=== PATIENT | male | born 1970 | race Caucasian/White ===

== ENCOUNTER → 2018-09-26 07:49 | Outpatient (CLI) | payer BC, SELFPAY ==
--- NOTE | 2018-09-26 12:25 | PM.TREADMILL ---
Cardiac Stress Test Report Referral & Results Date Patient Seen: 09/26/18 Time Patient Seen: 09:00 Requesting provider: Geraldo Fay Indication: Chest pain, palpitations Rest ECG: NSR Procedure Note: Today following both written and verbal informed consent, the patient was exercised according to a standard Fabricio protocol. The patient exercised for a total of 12 minutes 14 seconds achieving a maximum heart rate of 161. Patient's maximum systolic blood pressure was 190. This was an estimated 12.8 MET's. Occasional exercise PVCs. Patient asymptomatic throughout the test. Impression: Low probability for ischemia. Hughes treadmill score of 12 projects 97% survival over the next 5 years. Please note: Actual ECG tracings can be found in the PACS system.
== END ==
PROVIDERS: PCP Internal Medicine; Visit Provider Internal Medicine
DX: R07.9 Chest pain, unspecified (principal); R00.2 Palpitations
CPT/HCPCS: 93016; 93017; 93018

== ENCOUNTER → 2019-02-22 14:36 | Outpatient (CLI) | payer BC, SELFPAY ==
--- NOTE | 2019-02-22 | DI.US.S_ITS ---
PROCEDURE: US SCROTUM INDICATIONS: RIGHT SCROTAL LUMP TECHNIQUE: Real-time scanning was performed of the scrotum and testicles, with image documentation. Color and pulse Doppler interrogation was performed of both testicles. COMPARISON: None. FINDINGS: Right: Testicle is normal in size at 4.7 x 2.4 x 2.8 cm, and homogenous in echotexture. Epididymis is normal in overall size and morphology. No hydrocele or varicoceles. Overlying scrotal skin is normal in thickness. Left: Testicle is normal in size at 4.3 x 2.6 x 3.0 cm, and homogeneous in echotexture. Epididymis is normal in overall size and morphology. No hydrocele or varicoceles. Overlying scrotal skin is normal in thickness. Doppler: Color and pulse Doppler demonstrate normal and symmetric arterial flow in both testicles. IMPRESSION: Normal exam. Normal exam. Dictated by: Everardo CASTILLO Interpreted: Shravan Patel MD on 02/22/2019 at 15:47 Approved by: Shravan Patel M.D. on 02/22/2019 at 17:24
== END ==
PROVIDERS: PCP Student in an Organized Health Care Education/Training Program; Visit Provider Internal Medicine
DX: N50.9 Disorder of male genital organs, unspecified (principal); I86.1 Scrotal varices; N50.811 Right testicular pain
CPT/HCPCS: 76870

== ENCOUNTER → 2019-09-26 15:03 | Oncology outpatient (ONC) | payer BC, SELFPAY ==
[2019-09-26 14:16] VITALS: BP 127/82; PULSE 55; RESP 16; TEMP 36.2; O2SAT 98
--- NOTE | 2019-09-26 14:54 | ONC.CONS ---
History of Present Illness - Data of Consult Patient: new to practice Primary Care Provider: Jeff Degroot MD - Consult Narrative Narrative: Eric Devi is a 49 year old male with a family history of hemochromatosis in his sister, who comes today for hematology assessment for whether not he has hemochromatosis. His sister was diagnosed several years ago and has and has had multiple phlebotomies. Testing has shown that she has damage to her heart, liver and kidneys on MRI scanning. She was advised by her managing physicians to notify her family of this diagnosis of that they could undergo appropriate testing. Mr. Devi presents today for this purpose. From his perspective is generally feeling fairly good. He notes heart palpitations that have been diagnosed as PVCs. He has had a ZIO patch, treadmill, and echocardiogram for assessment of these findings. No therapy has been undertaken for this. He also notes that he has some joint pains although no changes of inflammatory arthritis. He denies other pain, bleeding, localized weakness, fever, chills, nausea, vomiting, cough or shortness of breath. All other systems are negative. Past medical history 1. Current medications include as needed Pepcid, vitamin-C, multiple vitamin, fiber Lax and as needed Claritin 2. History of PVCs 3. Gastroesophageal reflux 4. Previous surgeries include appendectomy, left knee arthroscopy and upper endoscopy 5. His mother had this had thyroid and ovarian cancer. His sister has hemochromatosis as outlined above 6. He is allergic to separate Septra penicillin 7. He is and alone in the office today. He is not a smoker or drinker. CC: Jack Scott MD Home Medications and Allergies Home Medications Medication Instructions Recorded Confirmed Type CA PANTOTHENATE/FOLIC ACID/VIT 1 tab PO DAILY #0 03/03/11 09/26/19 History (MULTIVITAMIN) famotidine [Pepcid] 20 mg PO QDAY #0 05/10/11 09/26/19 History loratadine [Claritin] 10 mg PO DAILY PRN 09/26/19 09/26/19 History Allergies Allergy/AdvReac Type Severity Reaction Status Date / Time From SEPTRA DS Allergy Mild itchy rash Uncoded 07/13/17 12:33 PENICILLIN Allergy Mild report as Uncoded 07/13/17 12:33 Medical History - Medical, Surgical, Family History Surgical History: Surgical History Status post appendectomy - Social History Smoking Status: Never smoker Review of Systems - Patient Self-Reported Symptoms SR Cardiovascular issues: Palpitations SR Musculoskeletal issues: Joint pain or swelling Exam Vital signs: Vital Signs Temp Pulse Resp BP Pulse Ox 09/26/19 14:16 97.2 F L 55 L 16 127/82 98 Intake and Output 09/25/19 09/26/19 09/26/19 23:59 07:59 15:59 Other: Weight 98.4 kg Patient Weight 09/26/19 23:59 Weight 98.4 kg Narrative: He was awake alert and oriented x3. There were no changes of joint inflammation in his hands. He was fully ambulatory and in no acute distress. Results - Imaging Additional studies: Procedures ESOPHAGOGASTRODUODENOSCOPY [EGD] W/CLOSED BIOPSY (07/22/09) Assessment and Plan (1) Family history of hemochromatosis Status: Acute Mr. Devi has a family history of hemochromatosis. We reviewed the inheritance of hemochromatosis which is autosomal recessive. With his sister being affected, this would mean that both of her parents are obligate carriers of the gene. We reviewed the fact that a quarter of their children would be perfectly normal, half their children would be heterozygotes, and a quarter of her children would be homozygous for the hemochromatosis gene. We discussed the fact that there are 2 major hemochromatosis genes. We reviewed the mechanism of hemochromatosis which is excessive absorption of iron due to a 5 mutation in the regulatory system that controls iron absorption. Over time, this can result in iron deposition in internal organs causing problems with heart, joints, liver, kidneys. Min are typically more affected than women. It typically requires many years of an extremely elevated iron level (ferritin over 1000) for iron deposition related damage to developed. We discussed the fact that hemochromatosis is effectively managed with phlebotomy. If phlebotomy is initiated prior to the onset of significant organ damage, it can prevent organ damage and would typically be expected to result in a normal life expectancy. Accordingly, testing family members of affected individual would be standard of care. We will get a ferritin and iron saturation calculation today. Iron saturation is typically a markedly elevated even in individuals who do not have actual iron overload. The ferritin levels the best reflection of actual iron stores and would be the end point for phlebotomy if it were required. We will check both of these test today along with a blood count metabolic panel to screen for internal organ function. If these tests are normal, no further hematology evaluation would be indicated. If these tests are abnormal, we will plan to regroup with Mr. Devi and formulate a plan for follow-up. Mr. Devi had multiple questions that were answered in detail but I personally spent 31 minutes in today's [id number] visit with greater than 50% of the time spent counseling regarding the issues outlined above.
[2019-09-26 15:17] LABS: Add Manual Diff / Slide Review NO; Basophils Absolute Auto 0 /uL (0-100); Basophils Percent Auto 0.5 % (0-2); Eosinophils Absolute Auto 100 /uL (0-450); Eosinophils Percent Auto 0.8 % (2-4); Hematocrit 44.8 % (41-53); Hemoglobin 15.3 g/dL (13.5-17.5); Lymphocytes Absolute Auto 2200 /uL (1100-4500); Mean Corpuscular HGB Conc 34.1 % (30-36); Mean Corpuscular Hemoglobin 29.5 PG (26-34); Mean Corpuscular Volume 86.6 fL (80-100); Monocytes Absolute Auto 700 /uL (0-900); Monocytes Percent Auto 8.4 % (3-14); Neutrophils Absolute Auto 5200 /uL (1500-7000); Neutrophils Percent Auto 63.3 % (50-75); Platelet Count 260 X10^3/uL (150-400); Red Blood Cell Count 5.17 X10^6/uL (4.5-5.9); Red Cell Distribution Width 13.8 % (11.6-14.8); White Blood Cell Count 8.3 X10^3/uL (4.5-11.0)
[2019-09-26 15:36] LABS: Alanine Aminotransferase 29 IU/L (<50); Albumin 4.8 g/dL (3.5-5.0); Albumin Globulin Ratio 1.6 (1.0-2.8); Alkaline Phosphatase 83 U/L (38-126); Aspartate Aminotransferase 27 IU/L (17-59); BUN Creatinine Ratio 17.6 (6-22); Bilirubin Total 0.5 mg/dL (0.2-1.3); Blood Urea Nitrogen 16 mg/dL (9-20); Calcium 10.2 mg/dL (8.4-10.2); Carbon Dioxide 28 mmol/L (22-32); Chloride 105 mmol/L (98-107); Estimated Glomerular Filt Rate > 60.0 mL/min (>60); Glucose 96 mg/dL (70-100); HEMOLYSIS < 15 (0-50); Potassium 5.2 mmol/L (3.4-5.1); Sodium 141 mmol/L (137-145); Total Protein 7.8 g/dL (6.3-8.2)
[2019-09-26 15:43] LABS: HEMOLYSIS 17 (0-50); Iron 63 ug/dL (49-181)
[2019-09-26 15:54] LABS: Percent Iron Saturation 20 % (20-50); Total Iron Binding Capacity 319 ug/dL (261-462); Transferrin 240 mg/dL (206-381)
[2019-09-26 16:11] LABS: Ferritin 141 ng/mL (18-464)
== END ==
PROVIDERS: PCP Student in an Organized Health Care Education/Training Program; Referring Provider Internal Medicine; Visit Provider Internal Medicine
DX: Z13.228 Encounter for screening for other metabolic disorders (principal); Z83.49 Family history of other endocrine, nutritional and metabolic diseases; I49.3 Ventricular premature depolarization; K21.9 Gastro-esophageal reflux disease without esophagitis
CPT/HCPCS: 36415; 80053; 82728; 83540; 83550; 85025; 99203; 99213

== ENCOUNTER 2020-07-15 11:32 | Emergency (ER) | payer BC, SELFPAY ==
[2020-07-15 11:35] VITALS: BP 189/95; PULSE 60; RESP 14; TEMP 36.6; O2SAT 99; BMI 27.5
--- NOTE | 2020-07-15 11:35 | DI.RAD.S_ITS ---
PROCEDURE: XR CHEST 1V INDICATIONS: chest pain TECHNIQUE: One view of the chest was acquired. COMPARISON: None. FINDINGS: Surgical changes and devices: None. Lungs and pleura: Lungs are clear. No pleural effusions or pneumothorax. Mediastinum: Mediastinal contours appear normal. Heart size is normal. Bones and chest wall: No suspicious bony lesions. Overlying soft tissues appear unremarkable. IMPRESSION: No acute cardiopulmonary disease process. Dictated by: Aurelia Villagran MD, PhD on 07/15/2020 at 11:59 Approved by: Aurelia Villagran MD, PhD on 07/15/2020 at 12:05
--- NOTE | 2020-07-15 11:36 | ED.CHESTPAIN ---
HPI - Chest Pain General Chief Complaint: Chest Pain Stated Complaint: chest pain Time Seen by Provider: 07/15/20 11:33 Source: patient Mode of arrival: Ambulatory Limitations: no limitations History of Present Illness HPI narrative: 49-year-old male nonsmoker without significant medical history presents with a chief complaint of left-sided chest pain off and on since Tuesday. He does not know for sure what he was doing when it started and states that it is at most a 2 or 3 and sometimes sharp and sometimes squeezing. He denies any radiation of his pain. He states it is made worse with deep breath and sometimes leaning forward. He states that he works out regularly and denies any exertional type component. He is not dizzy nor weak or lightheaded. He denies any shortness of breath, cough, fever or chills. He denies nausea, vomiting, unexplained diaphoresis. He denies recent travel, injury, history of cancer or prior blood clot. MD complaint: chest pain Onset (ago): day(s) Duration: intermittent Onset: during rest Pain location: left chest Severity: mild Severity scale (1-10): 3 Quality: aching and sharp Pain radiation: none Treatments prior to arrival chest pain: aspirin Related Data Home Medications Medication Instructions Recorded Confirmed CA PANTOTHENATE/FOLIC ACID/VIT 1 tab PO DAILY #0 03/03/11 03/21/20 (MULTIVITAMIN) famotidine [Pepcid] 20 mg PO QDAY #0 05/10/11 03/21/20 loratadine [Claritin] 10 mg PO DAILY PRN 09/26/19 03/21/20 Previous Rx's Medication Instructions Recorded ketorolac 10 mg PO Q6H PRN #14 tab 07/15/20 Allergies Allergy/AdvReac Type Severity Reaction Status Date / Time Penicillins Allergy Unknown Verified 07/15/20 11:43 sulfamethoxazole Allergy Unknown Verified 07/15/20 11:43 [From ] trimethoprim [From ] Allergy Unknown Verified 07/15/20 11:43 Review of Systems Constitutional Constitutional: Denies chills, Denies fatigue, Denies fever(s), Denies frequent falls, Denies lethargy and Denies weakness Eyes Eyes: Denies change in vision, Denies eye discharge, Denies irritation and Denies loss of vision ENT Ears, Nose, Mouth, and Throat: Denies change in voice, Denies dizziness, Denies neck pain, Denies sore throat and Denies throat swelling Cardiovascular Cardiovascular: Reports chest pain, Denies irregular heart rhythm, Denies lightheadedness, Denies palpitations, Denies dyspnea, Denies dyspnea on exertion and Denies orthopnea Respiratory Respiratory: Denies cough, Denies dyspnea, Denies dyspnea on exertion and Denies wheezing Gastrointestinal Gastrointestinal: Denies abdominal pain, Denies change in bowel habits, Denies diarrhea, Denies nausea and Denies vomiting Musculoskeletal Musculoskeletal: Denies neck pain and Denies numbness Integumentary/Breasts Skin/Breast: Denies pruritus, Denies erythema, Denies rash and Denies wounds Neurologic Neurologic: Denies behavioral changes, Denies confusion, Denies dizziness, Denies frequent falls, Denies loss of vision, Denies numbness and Denies weakness Psychiatric Psychiatric: Denies anxiety, Denies behavioral changes, Denies confusion, Denies depression, Denies homicidal ideation and Denies suicidal ideation Endocrine Endocrine: Denies fatigue, Denies flushing and Denies palpitations Hematologic/Lymphatic Hematologic/Lymphatic: Denies easy bruising Allergic/Immunologic Allergic/Immunologic: Denies urticaria, Denies throat swelling and Denies wheezing Patient History Medical History Family history of hemochromatosis Hyperlipidemia Premature ventricular contractions (PVCs) (VPCs) Surgical History Status post appendectomy Family History Unknown Hemochromatosis Social History Smoking Status: Never smoker Smoking Status: Never smoker Exam Narrative Exam Narrative: GENERAL: [49] year old patient appears stated age. Well-nourished, well-developed patient, in mild distress. HEAD: Atraumatic. Normocephalic. EYES: Pupils equal round and reactive. Extraocular motions intact. No scleral icterus. No injection or drainage. ENT: Nose without bleeding, purulent drainage. Throat without erythema, tonsillar hypertrophy or exudate. Airway patent. NECK: Trachea midline. Non tender CARDIOVASCULAR: Regular rate and rhythm without murmurs, gallops, or rubs. No reproducible pain on palpation, however deep breath seems to worsen his discomfort RESPIRATORY: Clear to auscultation. Breath sounds equal bilaterally. No wheezes, rales, or rhonchi. GASTROINTESTINAL: Abdomen soft, non-tender, nondistended. EXTREMITIES: No edema or joint tenderness. BACK: Nontender without deformity or crepitance. No flank tenderness. NEURO: AOx3. SKIN: No rash or erythema of visible areas Initial Vital Signs Initial Vital Signs: Vital Signs Temperature 97.8 F 07/15/20 11:35 Pulse Rate 60 07/15/20 11:35 Respiratory Rate 14 07/15/20 11:35 Blood Pressure 189/95 H 07/15/20 11:35 Pulse Oximetry 99 07/15/20 11:35 Course Orders Ordered: ED Orders 07/15/20 11:35 XR chest 1V Stat EKG-12 Lead Stat 07/15/20 12:00 C-Reactive Protein Quant Stat Complete Blood Count AUTO DIFF Stat Comprehensive Metabolic Panel Stat D Dimer Stat Erythrocyte Sedimentation Rate Stat Lipase Stat Partial Thromboplastin Time Stat Prothrombin Time INR Stat Troponin & CK Cardiac Panel Stat Vital Signs Vital signs: Vital Signs - 8 hr 07/15/20 12:00 07/15/20 12:25 07/15/20 12:30 Pulse Rate 51 L 51 L 52 L Respiratory Rate 15 15 13 Blood Pressure 134/66 129/74 Pulse Oximetry 100 100 99 07/15/20 13:00 Pulse Rate 52 L Respiratory Rate 16 Blood Pressure 127/85 Pulse Oximetry 99 MDM - Chest Pain Lab Data Result diagrams: 07/15/20 12:00 07/15/20 12:00 Labs: Lab Results 07/15/20 07/15/20 07/15/20 Range/Units 12:00 12:00 12:00 WBC 7.3 (4.5-11.0) X10^3/uL RBC 5.23 (4.5-5.9) X10^6/uL Hgb 15.3 (13.5-17.5) g/dL Hct 44.8 (41-53) % MCV 85.6 (80-100) fL MCH 29.3 (26-34) PG MCHC 34.2 (30-36) % RDW 13.6 (11.6-14.8) % Plt Count 252 (150-400) X10^3/uL Neut % (Auto) 56.2 (50-75) % Lymph % (Auto) 31.1 (25-40) % Craven % (Auto) 10.1 (3-14) % Eos % (Auto) 2.0 (2-4) % Baso % (Auto) 0.6 (0-2) % Neut # (Auto) 4100 (2934-5257) /uL Lymph # (Auto) 2300 (4975-9923) /uL Craven # (Auto) 700 (0-900) /uL Eos # (Auto) 100 (0-450) /uL Baso # (Auto) 0 (0-100) /uL ESR (0-15) MM/HR PT 11.7 (10.1-12.7) SECONDS INR 1.0 (0.9-1.3) APTT 38 H (26.4-36.2) SECONDS D-Dimer (<230) ng/mL Sodium 140 (137-145) mmol/L Potassium 4.1 (3.4-5.1) mmol/L Chloride 103 (98-107) mmol/L Carbon Dioxide 30 (22-32) mmol/L BUN 16 (9-20) mg/dL Creatinine 0.87 (0.66-1.25) mg/dL Estimated GFR > 60.0 (>60) mL/min BUN/Creatinine Ratio 18.4 (6-22) Glucose 98 (70-100) mg/dL Calcium 9.9 (8.4-10.2) mg/dL Total Bilirubin 0.6 (0.2-1.3) mg/dL AST 31 (17-59) IU/L ALT 45 (<50) IU/L Alkaline Phosphatase 88 (38-126) U/L Total Creatine Kinase 98 (55-170) U/L CK-MB (CK-2) TNP CK-MB (CK-2) Rel Index TNP Troponin I < 0.012 (0.01-0.034) ng/mL C-Reactive Protein (<1.0) mg/dL Total Protein 7.7 (6.3-8.2) g/dL Albumin 4.6 (3.5-5.0) g/dL Globulin 3.1 (1.7-4.1) g/dL Albumin/Globulin Ratio 1.5 (1.0-2.8) Lipase 54 (23-300) U/L 07/15/20 07/15/20 07/15/20 Range/Units 12:00 12:00 12:00 WBC (4.5-11.0) X10^3/uL RBC (4.5-5.9) X10^6/uL Hgb (13.5-17.5) g/dL Hct (41-53) % MCV (80-100) fL MCH (26-34) PG MCHC (30-36) % RDW (11.6-14.8) % Plt Count (150-400) X10^3/uL Neut % (Auto) (50-75) % Lymph % (Auto) (25-40) % Craven % (Auto) (3-14) % Eos % (Auto) (2-4) % Baso % (Auto) (0-2) % Neut # (Auto) (2514-5411) /uL Lymph # (Auto) (6512-3156) /uL Craven # (Auto) (0-900) /uL Eos # (Auto) (0-450) /uL Baso # (Auto) (0-100) /uL ESR 2 (0-15) MM/HR PT (10.1-12.7) SECONDS INR (0.9-1.3) APTT (26.4-36.2) SECONDS D-Dimer < 200 (<230) ng/mL Sodium (137-145) mmol/L Potassium (3.4-5.1) mmol/L Chloride (98-107) mmol/L Carbon Dioxide (22-32) mmol/L BUN (9-20) mg/dL Creatinine (0.66-1.25) mg/dL Estimated GFR (>60) mL/min BUN/Creatinine Ratio (6-22) Glucose (70-100) mg/dL Calcium (8.4-10.2) mg/dL Total Bilirubin (0.2-1.3) mg/dL AST (17-59) IU/L ALT (<50) IU/L Alkaline Phosphatase (38-126) U/L Total Creatine Kinase (55-170) U/L CK-MB (CK-2) CK-MB (CK-2) Rel Index Troponin I (0.01-0.034) ng/mL C-Reactive Protein 0.5 (<1.0) mg/dL Total Protein (6.3-8.2) g/dL Albumin (3.5-5.0) g/dL Globulin (1.7-4.1) g/dL Albumin/Globulin Ratio (1.0-2.8) Lipase (23-300) U/L ECG Data Interpretation: EKG is normal sinus rhythm rate [50 ] and free of any signs of ischemia or ectopy. No ST segmental elevation or depression. No T wave inversions MDM Narrative Medical decision making narrative: Multiple etiologies for patient's symptoms considered including: [Cardiac ischemia thought unlikely given lack of exertional symptoms, radiation of discomfort, findings which troponin or EKG. Pulmonary embolism considered but thought unlikely given negative D-dimer. Hypertensive urgency considered given occasional elevated blood pressure but no correlation obtained here. Reflux or other GI symptoms considered given his history but unclear. Pericarditis considered given reproducible sharp pain with change of position and deep breathing. No inflammatory markers however.] Patient's symptoms improved over duration of stay with above-stated therapies. Findings and discharge diagnosis discussed with patient/family followed by verbalization of understanding Return precautions discussed with patient/family whom verbalize understanding. Discharge Plan Departure Patient Disposition: Home Clinical Impression: Atypical chest pain Instructions: Pericarditis -- Adult, DI for Atypical Chest Pain Activity Restrictions/Additional Instructions: *You have been diagnosed with [atypical chest pain, labs, exam, EKGs and imaging are very reassuring.] *What to do: *Take medications as directed: *Follow up with your primary care provider in 2-3 days, call for an appointment. Let them know you were seen in the Emergency Department and that we ask that you be seen in follow up *Return to ER if you should have any new, worsening or concerning symptoms Prescriptions: New ketorolac 10 mg tablet 10 mg PO Q6H PRN (Reason: pain) Qty: 14 RF: 0 No Action CA PANTOTHENATE/FOLIC ACID/VIT (MULTIVITAMIN) 1 tab PO DAILY Qty: 0 RF: 0 famotidine [Pepcid] 20 MG tablet 20 mg PO QDAY Qty: 0 RF: 0 loratadine [Claritin] 10 mg Tablet 10 mg PO DAILY PRN (Reason: Allergic Symptoms) RF: 0 Referrals: Cesario Hutchins MD [Primary Care Provider] -
[2020-07-15 11:42] VITALS: PULSE 53; RESP 20; O2SAT 100
[2020-07-15 12:00] VITALS: PULSE 51; RESP 15; O2SAT 100
[2020-07-15 12:09] LABS: Add Manual Diff / Slide Review NO; Basophils Absolute Auto 0 /uL (0-100); Basophils Percent Auto 0.6 % (0-2); Eosinophils Absolute Auto 100 /uL (0-450); Hematocrit 44.8 % (41-53); Hemoglobin 15.3 g/dL (13.5-17.5); Lymphocytes Absolute Auto 2300 /uL (1100-4500); Lymphocytes Percent Auto 31.1 % (25-40); Mean Corpuscular HGB Conc 34.2 % (30-36); Mean Corpuscular Hemoglobin 29.3 PG (26-34); Mean Corpuscular Volume 85.6 fL (80-100); Monocytes Absolute Auto 700 /uL (0-900); Monocytes Percent Auto 10.1 % (3-14); Neutrophils Absolute Auto 4100 /uL (1500-7000); Neutrophils Percent Auto 56.2 % (50-75); Platelet Count 252 X10^3/uL (150-400); Red Blood Cell Count 5.23 X10^6/uL (4.5-5.9); Red Cell Distribution Width 13.6 % (11.6-14.8); White Blood Cell Count 7.3 X10^3/uL (4.5-11.0)
[2020-07-15 12:25] VITALS: BP 134/66; PULSE 51; RESP 15; O2SAT 100
[2020-07-15 12:25] LABS: Prothrombin Time 11.7 SECONDS (10.1-12.7)
[2020-07-15 12:27] LABS: PTT Partial Thromboplastin Tim 38 SECONDS (26.4-36.2)
[2020-07-15 12:28] LABS: Alanine Aminotransferase 45 IU/L (<50); Albumin 4.6 g/dL (3.5-5.0); Albumin Globulin Ratio 1.5 (1.0-2.8); Alkaline Phosphatase 88 U/L (38-126); Aspartate Aminotransferase 31 IU/L (17-59); BUN Creatinine Ratio 18.4 (6-22); Bilirubin Total 0.6 mg/dL (0.2-1.3); Blood Urea Nitrogen 16 mg/dL (9-20); Calcium 9.9 mg/dL (8.4-10.2); Carbon Dioxide 30 mmol/L (22-32); Chloride 103 mmol/L (98-107); Creatine Kinase 98 U/L (55-170); Estimated Glomerular Filt Rate > 60.0 mL/min (>60); Globulin 3.1 g/dL (1.7-4.1); Glucose 98 mg/dL (70-100); HEMOLYSIS < 15 (0-50); Lipase 54 U/L (23-300); Potassium 4.1 mmol/L (3.4-5.1); Sodium 140 mmol/L (137-145); Total Protein 7.7 g/dL (6.3-8.2)
[2020-07-15 12:30] VITALS: BP 129/74; PULSE 52; RESP 13; O2SAT 99
[2020-07-15 12:38] LABS: D Dimer < 200 ng/mL (<230); Troponin I < 0.012 ng/mL (0.01-0.034)
[2020-07-15 12:39] LABS: C-Reactive Protein Quant 0.5 mg/dL (<1.0)
[2020-07-15 12:46] LABS: Erythrocyte Sedimentation Rate 2 MM/HR (0-15)
[2020-07-15 13:00] VITALS: BP 127/85; PULSE 52; RESP 16; O2SAT 99
== END 2020-07-15 13:22 | disposition home or self-care (01) ==
PROVIDERS: Emergency Provider Emergency Medicine; PCP Family Medicine
DX: R07.89 Other chest pain (principal)
CPT/HCPCS: 36415; 71045; 80053; 82550; 83690; 84484; 85025; 85379; 85610; 85651; 85730; 86140; 93005; 93010; 99283; 99284

== ENCOUNTER → 2020-07-18 08:55 | Outpatient (CLI) | payer BC, SELFPAY ==
[2020-07-18 09:54] LABS: Alanine Aminotransferase 37 IU/L (<50); Albumin 4.6 g/dL (3.5-5.0); Albumin Globulin Ratio 1.6 (1.0-2.8); Alkaline Phosphatase 85 U/L (38-126); Aspartate Aminotransferase 29 IU/L (17-59); BUN Creatinine Ratio 16.3 (6-22); Bilirubin Total 0.6 mg/dL (0.2-1.3); Blood Urea Nitrogen 14 mg/dL (9-20); Calcium 9.7 mg/dL (8.4-10.2); Carbon Dioxide 27 mmol/L (22-32); Chloride 104 mmol/L (98-107); Cholesterol 172 mg/dL (140-199); Estimated Glomerular Filt Rate > 60.0 mL/min (>60); Globulin 2.8 g/dL (1.7-4.1); Glucose 97 mg/dL (70-100); HDL Cholesterol 39 mg/dL (40-60); HEMOLYSIS < 15 (0-50); LDL Cholesterol Calculated 117 mg/dL (<100); Potassium 4.7 mmol/L (3.4-5.1); Sodium 139 mmol/L (137-145); Total Protein 7.4 g/dL (6.3-8.2); Triglycerides 78 mg/dL (35-150)
== END ==
PROVIDERS: PCP Family Medicine; Referring Provider Family Medicine; Visit Provider Family Medicine
DX: E78.5 Hyperlipidemia, unspecified (principal); R03.0 Elevated blood-pressure reading, without diagnosis of hypertension
CPT/HCPCS: 36415; 80053; 80061

== ENCOUNTER → 2020-07-31 11:04 | Outpatient (CLI) | payer BC, SELFPAY ==
[2020-07-31 12:01] LABS: Add Manual Diff / Slide Review NO; Basophils Absolute Auto 100 /uL (0-100); Basophils Percent Auto 0.7 % (0-2); Eosinophils Absolute Auto 200 /uL (0-450); Eosinophils Percent Auto 2.1 % (2-4); Hematocrit 44.8 % (41-53); Hemoglobin 15.3 g/dL (13.5-17.5); Lymphocytes Absolute Auto 2600 /uL (1100-4500); Lymphocytes Percent Auto 31.4 % (25-40); Mean Corpuscular HGB Conc 34.1 % (30-36); Mean Corpuscular Hemoglobin 29.1 PG (26-34); Mean Corpuscular Volume 85.5 fL (80-100); Monocytes Absolute Auto 900 /uL (0-900); Monocytes Percent Auto 10.6 % (3-14); Neutrophils Absolute Auto 4600 /uL (1500-7000); Neutrophils Percent Auto 55.2 % (50-75); Platelet Count 266 X10^3/uL (150-400); Red Blood Cell Count 5.23 X10^6/uL (4.5-5.9); Red Cell Distribution Width 13.6 % (11.6-14.8); White Blood Cell Count 8.3 X10^3/uL (4.5-11.0)
[2020-07-31 12:16] LABS: Alanine Aminotransferase 38 IU/L (<50); Albumin 4.7 g/dL (3.5-5.0); Albumin Globulin Ratio 1.7 (1.0-2.8); Alkaline Phosphatase 83 U/L (38-126); Aspartate Aminotransferase 27 IU/L (17-59); Bilirubin Total 0.5 mg/dL (0.2-1.3); Blood Urea Nitrogen 15 mg/dL (9-20); Calcium 10.2 mg/dL (8.4-10.2); Carbon Dioxide 27 mmol/L (22-32); Chloride 102 mmol/L (98-107); Estimated Glomerular Filt Rate > 60.0 mL/min (>60); Globulin 2.7 g/dL (1.7-4.1); Glucose 88 mg/dL (70-100); HEMOLYSIS < 15 (0-50); Lipase 70 U/L (23-300); Potassium 4.6 mmol/L (3.4-5.1); Sodium 138 mmol/L (137-145); Total Protein 7.4 g/dL (6.3-8.2)
== END ==
PROVIDERS: PCP Family Medicine; Referring Provider Registered Nurse; Visit Provider Registered Nurse
DX: R19.00 Intra-abdominal and pelvic swelling, mass and lump, unspecified site (principal)
CPT/HCPCS: 36415; 80053; 83690; 85025

== ENCOUNTER → 2020-08-08 09:17 | Outpatient (CLI) | payer BC, SELFPAY ==
--- NOTE | 2020-08-08 09:17 | DI.US.S_ITS ---
PROCEDURE: US ABDOMEN COMPLETE INDICATIONS: ABDOMINAL DISENTION 1 MONTH POST 2ND PFIZER VACCINE TECHNIQUE: Real-time scanning was performed of the abdominal and retroperitoneal organs, with image documentation. COMPARISON: None. FINDINGS: Liver: 17.2 cm in length. Normal appearance Gallbladder: Negative Biliary ducts: Intrahepatic bile ducts are non-dilated. Extrahepatic bile duct caliber measures 5 mm. Normal is 6-7 mm or less in diameter, or 10 mm or less post-cholecystectomy. Pancreas: Visualized portions of the pancreas are sonographically normal. The pancreatic tail is not well seen secondary to shadowing bowel gas Spleen: Spleen is normal in size and homogeneous in echotexture. Kidneys: Kidneys are normal in size and echotexture. Right kidney measures 10.2 cm long; left kidney measures 12.0 cm long. No hydronephrosis or nephrolithiasis. No solid masses. Aorta: Proximal aorta not well seen otherwise normal caliber. Iliacs: Proximal common iliac arteries are normal in caliber at less than 2.5 cm. IVC: Intrahepatic inferior vena cava is patent. Miscellaneous: No free abdominal fluid. Anterior abdominal wall grossly unremarkable IMPRESSION: Negative examination as above. Dictated by: Bimal Quiles M.D. on 08/08/2020 at 10:39 Approved by: Bimal Quiles M.D. on 08/08/2020 at 10:40
== END ==
PROVIDERS: PCP Family Medicine; Referring Provider Registered Nurse; Visit Provider Registered Nurse
DX: R19.00 Intra-abdominal and pelvic swelling, mass and lump, unspecified site (principal)
CPT/HCPCS: 76700

== ENCOUNTER → 2021-07-02 07:30 | Outpatient (CLI) | payer BC, SELFPAY ==
[2021-07-02 07:58] LABS: Add Manual Diff / Slide Review NO; Basophils Absolute Auto 100 /uL (0-100); Basophils Percent Auto 0.7 % (0-2); Eosinophils Absolute Auto 200 /uL (0-450); Eosinophils Percent Auto 2.2 % (2-4); Hematocrit 44.2 % (41-53); Hemoglobin 15.2 g/dL (13.5-17.5); Lymphocytes Absolute Auto 2700 /uL (1100-4500); Lymphocytes Percent Auto 35.4 % (25-40); Mean Corpuscular HGB Conc 34.4 % (30-36); Mean Corpuscular Hemoglobin 29.6 PG (26-34); Monocytes Absolute Auto 700 /uL (0-900); Monocytes Percent Auto 9.3 % (3-14); Neutrophils Absolute Auto 4000 /uL (1500-7000); Neutrophils Percent Auto 52.4 % (50-75); Platelet Count 245 X10^3/uL (150-400); Red Blood Cell Count 5.14 X10^6/uL (4.5-5.9); Red Cell Distribution Width 13.6 % (11.6-14.8); White Blood Cell Count 7.7 X10^3/uL (4.5-11.0)
[2021-07-02 08:26] LABS: Alanine Aminotransferase 36 IU/L (<50); Albumin 4.6 g/dL (3.5-5.0); Albumin Globulin Ratio 1.7 (1.0-2.8); Alkaline Phosphatase 68 U/L (38-126); Aspartate Aminotransferase 35 IU/L (17-59); BUN Creatinine Ratio 17.8 (6-22); Bilirubin Total 0.8 mg/dL (0.2-1.3); Blood Urea Nitrogen 16 mg/dL (9-20); Calcium 9.1 mg/dL (8.4-10.2); Carbon Dioxide 27 mmol/L (22-32); Chloride 105 mmol/L (98-107); Cholesterol 182 mg/dL (140-199); Estimated Glomerular Filt Rate > 60.0 mL/min (>60); Globulin 2.7 g/dL (1.7-4.1); Glucose 95 mg/dL (70-100); HDL Cholesterol 43 mg/dL (40-60); LDL Cholesterol Calculated 114 mg/dL (<100); Potassium 4.7 mmol/L (3.4-5.1); Sodium 137 mmol/L (137-145); Total Protein 7.3 g/dL (6.3-8.2); Triglycerides 127 mg/dL (35-150)
[2021-07-02 08:27] LABS: Creatinine Urine Random 224.5 mg/dL
[2021-07-02 08:28] LABS: HEMOLYSIS 71 (0-50)
[2021-07-02 08:29] LABS: Microalbumi Creatinin Ratio Ur 5.7 ug/mg CR (<30); Microalbumin Urine Random 1.3 mg/dL (0-1.6)
[2021-07-02 08:54] LABS: TSH w/ Reflex to FT4 2.27 uIU/mL (0.47-4.68)
== END ==
PROVIDERS: PCP Family Medicine; Referring Provider Family Medicine; Visit Provider Family Medicine
DX: E78.5 Hyperlipidemia, unspecified (principal); F43.9 Reaction to severe stress, unspecified; I10 Essential (primary) hypertension
CPT/HCPCS: 36415; 80053; 80061; 82043; 82570; 84443; 85025

== ENCOUNTER → 2022-08-19 08:00 | Outpatient (CLI) | payer BC, SELFPAY ==
[2022-08-19 08:29] LABS: Add Manual Diff / Slide Review NO; Basophils Absolute Auto 100 /uL (0-100); Basophils Percent Auto 0.9 % (0-2); Eosinophils Absolute Auto 100 /uL (0-450); Eosinophils Percent Auto 2.2 % (2-4); Hematocrit 41.6 % (41-53); Hemoglobin 14.6 g/dL (13.5-17.5); Lymphocytes Absolute Auto 1800 /uL (1100-4500); Lymphocytes Percent Auto 30.6 % (25-40); Mean Corpuscular Hemoglobin 29.9 PG (26-34); Mean Corpuscular Volume 85.2 fL (80-100); Monocytes Absolute Auto 500 /uL (0-900); Monocytes Percent Auto 8.6 % (3-14); Neutrophils Absolute Auto 3400 /uL (1500-7000); Neutrophils Percent Auto 57.7 % (50-75); Platelet Count 237 X10^3/uL (150-400); Red Blood Cell Count 4.89 X10^6/uL (4.5-5.9); Red Cell Distribution Width 14.3 % (11.6-14.8); White Blood Cell Count 5.9 X10^3/uL (4.5-11.0)
[2022-08-19 09:24] LABS: Alanine Aminotransferase 29 IU/L (<50); Albumin 4.1 g/dL (3.5-5.0); Albumin Globulin Ratio 1.6 (1.0-2.8); Alkaline Phosphatase 79 U/L (38-126); Aspartate Aminotransferase 25 IU/L (17-59); BUN Creatinine Ratio 13.1 (6-22); Bilirubin Total 0.8 mg/dL (0.2-1.3); Blood Urea Nitrogen 11 mg/dL (9-20); Calcium 8.9 mg/dL (8.4-10.2); Carbon Dioxide 25 mmol/L (22-32); Chloride 105 mmol/L (98-107); Cholesterol 153 mg/dL (140-199); Estimated Glomerular Filt Rate > 60 mL/min (>60); Globulin 2.5 g/dL (1.7-4.1); Glucose 91 mg/dL (70-100); HDL Cholesterol 42 mg/dL (40-60); HEMOLYSIS < 15 (0-50); LDL Cholesterol Calculated 98 mg/dL (<100); Potassium 4.4 mmol/L (3.4-5.1); Sodium 138 mmol/L (137-145); Total Protein 6.6 g/dL (6.3-8.2); Triglycerides 65 mg/dL (35-150)
[2022-08-19 10:11] LABS: Creatinine Urine Random 237.9 mg/dL
[2022-08-19 10:15] LABS: Microalbumi Creatinin Ratio Ur 12.6 ug/mg CR (<30)
[2022-08-21 22:27] LABS: Lipoprotein (a) 15.2 nmol/L (<75.0)
== END ==
PROVIDERS: PCP Family Medicine; Referring Provider Family Medicine; Visit Provider Family Medicine
DX: E78.5 Hyperlipidemia, unspecified (principal); I10 Essential (primary) hypertension; Z86.79 Personal history of other diseases of the circulatory system
CPT/HCPCS: 36415; 80053; 80061; 82043; 82570; 83695; 84443; 85025

== ENCOUNTER → 2022-11-03 17:04 | Outpatient (CLI) | payer BC, SELFPAY ==
[2022-11-03 18:05] LABS: Appearance Urine UA CLEAR; Bilirubin Urine UA NEGATIVE (NEGATIVE); Color Urine UA YELLOW; Glucose Urine UA NEGATIVE (Negative); Ketones Urine UA NEGATIVE (NEGATIVE); Leukocyte Esterase Urine UA NEGATIVE (NEGATIVE); Nitrite Urine UA NEGATIVE (Negative); Occult Blood Urine UA NEGATIVE (Negative); Protein Urine UA NEGATIVE (Negative); Specific Gravity Urine UA <=1.005 (1.000-1.035); Urobilinogen Urine UA 0.2 E.U./dL (0.2)
[2022-11-03 18:15] LABS: Bacteria Urine None Seen; Culture Indicated Urine Cult Not Indicated; RBC Urine None Seen (0-5/HPF); Squamous Epithelial Cell Urine None Seen (0-5/HPF); WBC Urine None Seen (0-5/HPF)
== END ==
PROVIDERS: PCP Family Medicine; Referring Provider Family Medicine; Visit Provider Family Medicine
DX: R35.0 Frequency of micturition (principal); R10.9 Unspecified abdominal pain
CPT/HCPCS: 81001

== ENCOUNTER → 2023-10-26 07:33 | Outpatient (CLI) | payer BC, SELFPAY ==
[2023-10-26 08:30] LABS: Add Manual Diff / Slide Review NO; Basophils Absolute Auto 0 /uL (0-100); Basophils Percent Auto 0.7 % (0-2); Eosinophils Absolute Auto 100 /uL (0-450); Hematocrit 44.4 % (41-53); Hemoglobin 15.1 g/dL (13.5-17.5); Lymphocytes Absolute Auto 2000 /uL (1100-4500); Lymphocytes Percent Auto 33.1 % (25-40); Mean Corpuscular Hemoglobin 29.4 PG (26-34); Mean Corpuscular Volume 86.4 fL (80-100); Monocytes Absolute Auto 600 /uL (0-900); Monocytes Percent Auto 9.7 % (3-14); Neutrophils Absolute Auto 3200 /uL (1500-7000); Neutrophils Percent Auto 54.5 % (50-75); Platelet Count 261 X10^3/uL (150-400); Red Blood Cell Count 5.14 X10^6/uL (4.5-5.9); Red Cell Distribution Width 13.5 % (11.6-14.8); White Blood Cell Count 5.9 X10^3/uL (4.5-11.0)
[2023-10-26 08:38] LABS: Hemoglobin A1C% w Est Avg Glu 5.4 % (4.0-6.0)
[2023-10-26 09:16] LABS: Appearance Urine UA CLEAR; Bilirubin Urine UA NEGATIVE (NEGATIVE); Color Urine UA YELLOW; Glucose Urine UA NEGATIVE (Negative); Ketones Urine UA NEGATIVE (NEGATIVE); Leukocyte Esterase Urine UA NEGATIVE (NEGATIVE); Nitrite Urine UA NEGATIVE (Negative); Occult Blood Urine UA NEGATIVE (Negative); Protein Urine UA NEGATIVE (Negative); Specific Gravity Urine UA <=1.005 (1.000-1.035); Urobilinogen Urine UA 0.2 E.U./dL (0.2); pH Urine UA 5.5 (4.5-8.0)
[2023-10-26 09:17] LABS: Urine Volume 10mL (spun)
[2023-10-26 09:18] LABS: Bacteria Urine None Seen; Culture Indicated Urine Cult Not Indicated; RBC Urine None Seen (0-5/HPF); Squamous Epithelial Cell Urine None Seen (0-5/HPF); WBC Urine None Seen (0-5/HPF)
[2023-10-26 09:54] LABS: Alanine Aminotransferase 31 IU/L (<50); Albumin 4.2 g/dL (3.5-5.0); Albumin Globulin Ratio 1.9 (1.0-2.8); Alkaline Phosphatase 91 U/L (38-126); Aspartate Aminotransferase 27 IU/L (17-59); BUN Creatinine Ratio 13.2 (6-22); Bilirubin Total 0.8 mg/dL (0.2-1.3); Blood Urea Nitrogen 12 mg/dL (9-20); Calcium 8.8 mg/dL (8.4-10.2); Carbon Dioxide 25 mmol/L (22-32); Chloride 105 mmol/L (98-107); Cholesterol 172 mg/dL (140-199); Estimated Glomerular Filt Rate > 60 mL/min (>60); Globulin 2.2 g/dL (1.7-4.1); Glucose 92 mg/dL (70-100); HDL Cholesterol 41 mg/dL (40-60); HEMOLYSIS 15 (0-50); LDL Cholesterol Calculated 111 mg/dL (<100); Potassium 4.5 mmol/L (3.4-5.1); Sodium 138 mmol/L (137-145); Total Protein 6.4 g/dL (6.3-8.2); Triglycerides 100 mg/dL (35-150)
[2023-10-26 10:05] LABS: Microalbumin Urine Random < 0.6 mg/dL (0-1.6)
[2023-10-26 10:21] LABS: TSH w/ Reflex to FT4 1.32 uIU/mL (0.47-4.68)
[2023-10-26 10:24] LABS: Prostate Specific Antigen Scrn 0.628 ng/mL (0.1-4.0)
[2023-10-26 11:39] LABS: Creatinine Urine Random 19.33 mg/dL
== END ==
LOC: LAB 07:34
PROVIDERS: PCP Family Medicine; Referring Provider Family Medicine; Visit Provider Family Medicine
DX: Z00.00 Encounter for general adult medical examination without abnormal findings (principal); E78.5 Hyperlipidemia, unspecified; I10 Essential (primary) hypertension; Z86.79 Personal history of other diseases of the circulatory system; Z82.49 Family history of ischemic heart disease and other diseases of the circulatory system; Z12.5 Encounter for screening for malignant neoplasm of prostate
CPT/HCPCS: 36415; 80053; 80061; 81001; 82043; 82172; 82570; 83036; 83695; 84443; 85025; G0103

== ENCOUNTER 2024-04-04 18:59 | Emergency (ER) | payer BC, SELFPAY ==
[2024-04-04 19:07] VITALS: BP 159/101; PULSE 59; RESP 18; TEMP 36.6; O2SAT 99; BMI 27.8
--- NOTE | 2024-04-04 20:40 | ED.WOUNDLAC ---
HPI - Wound/Laceration General Chief Complaint: Wound/Laceration Stated Complaint: L Hand Laceration Time Seen by Provider: 04/04/24 20:39 Source: patient, RN notes reviewed and old records reviewed Mode of arrival: Ambulatory Limitations: no limitations History of Present Illness HPI narrative: 53-year-old male history of hypertension on amlodipine presents with complaint of laceration to the left hand. Patient was helping to box up [employer] and accidentally cut his with a knife while cutting the tape using to close it. Patient states happened a couple hours ago. Does gape when he moves it. States he was able to move everything normally no numbness or tingling to his fingers. No other injuries. Patient believes his tetanus was recently updated in the past year. States amlodipine is only home medication. No tobacco, occasional alcohol, no recreational drugs. Patient has allergies to penicillin and Bactrim. Related Data Home Medications Medication Instructions Recorded Confirmed famotidine 20 mg tablet (Pepcid) 20 mg PO QDAY ##0 05/10/11 01/16/24 psyllium husk 0.4 gram capsule 0.4 g PO DAILY 06/30/22 01/16/24 (Fiber (psyllium husk)) Previous Rx's Medication Instructions Recorded amlodipine 5 mg tablet See Rx Instructions .Route 10/21/23 .COMPLEX #90 tabs Allergies Allergy/AdvReac Type Severity Reaction Status Date / Time Penicillins Allergy Unknown Verified 04/04/24 19:12 sulfamethoxazole Allergy Unknown Verified 04/04/24 19:12 [From ] trimethoprim [From ] Allergy Unknown Verified 04/04/24 19:12 Review of Systems Review of Systems ROS Unobtainable: All systems reviewed & are unremarkable except as noted in HPI and below Patient History Medical History Family history of coronary artery disease Abdominal bloating Hyperlipidemia Family history of hemochromatosis Premature ventricular contractions (PVCs) (VPCs) Surgical History Status post appendectomy Family History Unknown Hemochromatosis Social History Smoking Status: Never smoker Smoking Status: Never smoker alcohol intake frequency: 0-2 drinks per day Exam Narrative Exam Narrative: GENERAL: Alert and oriented x three, male in mild distress HEENT: Head normocephalic, atraumatic, EOMI, pupils reactive, face symmetric, moist mucous membranes NECK: Supple, full range of motion EXTREMITIES: Normal range of motion, no clubbing or edema. Neurovascularly intact. Patient has a cm and a half laceration over the palmar side on lateral hand over the 5th metacarpal fairly superficial but does gape with flexion-extension and movement. No bony or tendon involvement appreciated. Patient has normal range of motion of all 5 fingers with normal strength. Patient has cap refill less than 2 seconds in all 5 fingers. NEUROLOGICAL: Cranial nerves II through XII grossly intact. Moving all extremities SKIN: Warm, dry, no petechiae, no rashes or lesions. Initial Vital Signs Initial Vital Signs: Vital Signs Temperature 97.8 F 04/04/24 19:07 Pulse Rate 59 L 04/04/24 19:07 Respiratory Rate 18 04/04/24 19:07 Blood Pressure 159/101 H 04/04/24 19:07 Pulse Oximetry 99 04/04/24 19:07 Oxygen Delivery Method Room Air 04/04/24 19:07 Procedures Laceration Repair Laceration 1: Site: hand Side (If applicable): left Size (cm): 1.2 Description: linear Depth: simple, single layer Local Anesthetic: lidocaine 2% Amount of anesthesia used (mL): 3 Pre-repair: wound explored, irrigated extensively and deep structures intact Skin layer closed with: nylon Skin layer suture size: 4-0 Number of sutures: 4 Technique: simple, interrupted Course Vital Signs Vital signs: Vital Signs - 8 hr 04/04/24 19:07 04/04/24 21:21 Temperature 97.8 F Pulse Rate 59 L 56 L Respiratory Rate 18 20 Blood Pressure 159/101 H 150/103 H Pulse Oximetry 99 97 Oxygen Delivery Method Room Air Room Air MDM - Wound/Laceration MDM Narrative Medical decision making narrative: 53-year-old male had laceration to left palm of the hand. Fairly superficial but does gape. Four sutures were placed patient's tetanus is up-to-date patient is neurovascularly intact no tendon or bony involvement. Patient had bandage placed. Discussed return precautions all questions answered. Discharge Plan Departure Patient Disposition: Home Clinical Impression: Laceration of hand Instructions: DI for Laceration Repair Activity Restrictions/Additional Instructions: Return to the ED, urgent care, or isn't primary care for suture removal in 7-10 days. You can take acetaminophen or ibuprofen as needed for pain. Wound Care: Keep wound(s) clean and dry. Wash daily with soap and water only. Do not use over the counter products (alcohol or peroxide)on the wounds unless instructed by a physician. You can use topical triple antibiotic ointment as needed. If wound condition worsens (increased/expanding redness, developing fluid blisters, or worsening pain), either contact your doctor for an urgent re-assessment , or return to the Emergency Department. Return to the Emergency Department for any new or worsening symptoms. Return if fever greater than 100.4 Fahrenheit, increased swelling, increasing pain or worsening symptoms such as increased discharge or spreading redness. Prescriptions: No Action famotidine [Pepcid] 20 MG tablet 20 mg PO QDAY Qty: 0 psyllium husk [Fiber (psyllium husk)] 0.4 gram capsule 0.4 g PO DAILY amlodipine 5 mg tablet See Rx Instructions .ROUTE .COMPLEX Qty: 90 3RF Dose Instruction: TAKE 1 TABLET BY MOUTH DAILY Rx Instructions: TAKE 1 TABLET BY MOUTH DAILY Referrals: Cesario Hutchins MD [Primary Care Provider] - Stand Alone Forms: Patient Portal/API/Survey
[2024-04-04 21:21] VITALS: BP 150/103; PULSE 56; RESP 20; O2SAT 97
== END 2024-04-04 21:20 | disposition home or self-care (01) ==
PROVIDERS: Emergency Provider Emergency Medicine; PCP Family Medicine
DX: S61.412A Laceration without foreign body of left hand, initial encounter (principal); W26.0XXA Contact with knife, initial encounter; Y93.89 Activity, other specified
CPT/HCPCS: 12001; 99281; 99283

== ENCOUNTER → 2024-10-27 08:30 | Outpatient (CLI) | payer BC, SELFPAY ==
[2024-10-27 09:25] LABS: Add Manual Diff / Slide Review NO; Hematocrit 42.0 % (41-53); Hemoglobin 14.8 g/dL (13.5-17.5); Lymphocytes Absolute Auto 2100 /uL (1100-4500); Mean Corpuscular HGB Conc 35.3 % (30-36); Mean Corpuscular Hemoglobin 30.2 PG (26-34); Mean Corpuscular Volume 85.5 fL (80-100); Platelet Count 237 X10^3/uL (150-400)
[2024-10-27 09:34] LABS: Hemoglobin A1C% w Est Avg Glu 5.6 % (4.0-6.0)
[2024-10-27 09:42] LABS: Alanine Aminotransferase 42 IU/L (<50); Albumin 4.2 g/dL (3.5-5.0); Albumin Globulin Ratio 1.8 (1.0-2.8); Alkaline Phosphatase 75 U/L (38-126); Blood Urea Nitrogen 12 mg/dL (9-20); Calcium 9.1 mg/dL (8.4-10.2); Carbon Dioxide 27 mmol/L (22-32); Chloride 105 mmol/L (98-107); Cholesterol 163 mg/dL (140-199); Estimated Glomerular Filt Rate > 60 mL/min (>60); Globulin 2.4 g/dL (1.7-4.1); Glucose 93 mg/dL (70-99); HDL Cholesterol 38 mg/dL (40-60); HEMOLYSIS < 15 (0-50); Potassium 4.3 mmol/L (3.4-5.1); Sodium 139 mmol/L (137-145); Total Protein 6.6 g/dL (6.3-8.2); Triglycerides 95 mg/dL (35-150)
[2024-10-27 10:12] LABS: TSH w/ Reflex to FT4 1.45 uIU/mL (0.47-4.68)
[2024-10-30 00:41] LABS: Creatinine, Random Urine 32.7 mg/dL (Not Estab.)
[2024-10-30 01:07] LABS: Creatinine, Random Urine 32.3 mg/dL (Not Estab.); Metaneph/ Creatinine Ratio 0.3 (0.0-1.0); Metanephrine, Ur 28 ug/L (Undefined); Normetanephrine, Urine 55 ug/L (Undefined)
== END ==
PROVIDERS: PCP Family Medicine; Referring Provider Family Medicine; Visit Provider Family Medicine
DX: I10 Essential (primary) hypertension (principal); Z00.00 Encounter for general adult medical examination without abnormal findings; E78.5 Hyperlipidemia, unspecified; Z82.49 Family history of ischemic heart disease and other diseases of the circulatory system; Z86.79 Personal history of other diseases of the circulatory system; Z12.5 Encounter for screening for malignant neoplasm of prostate; R68.82 Decreased libido; R53.83 Other fatigue
CPT/HCPCS: 36415; 80053; 80061; 82043; 82088; 82172; 82384; 82570; 83036; 83835; 84244; 84402; 84403; 84443; 85025; G0103

== ENCOUNTER → 2025-02-16 07:55 | Outpatient (CLI) | payer BC, SELFPAY ==
[2025-02-16 08:51] LABS: Add Manual Diff / Slide Review NO; Hematocrit 42.5 % (41-53); Hemoglobin 14.7 g/dL (13.5-17.5); Lymphocytes Absolute Auto 2100 /uL (1100-4500); Mean Corpuscular HGB Conc 34.6 % (30-36); Mean Corpuscular Hemoglobin 29.2 PG (26-34); Mean Corpuscular Volume 84.5 fL (80-100); Platelet Count 230 X10^3/uL (150-400)
[2025-02-16 09:03] LABS: Hemoglobin A1C% w Est Avg Glu 5.3 % (4.0-6.0)
[2025-02-16 09:05] LABS: Alanine Aminotransferase 31 IU/L (<50); Albumin 4.2 g/dL (3.5-5.0); Albumin Globulin Ratio 1.9 (1.0-2.8); Alkaline Phosphatase 79 U/L (38-126); Blood Urea Nitrogen 15 mg/dL (9-20); Calcium 9.2 mg/dL (8.4-10.2); Carbon Dioxide 24 mmol/L (22-32); Chloride 106 mmol/L (98-107); Estimated Glomerular Filt Rate > 60 mL/min (>60); Globulin 2.2 g/dL (1.7-4.1); Glucose 92 mg/dL (70-99); HEMOLYSIS < 15 (0-50); Potassium 5.0 mmol/L (3.4-5.1); Sodium 139 mmol/L (137-145); Total Protein 6.4 g/dL (6.3-8.2)
[2025-02-16 09:34] LABS: TSH w/ Reflex to FT4 1.12 uIU/mL (0.47-4.68)
[2025-02-16 10:06] LABS: Microalbumi Creatinin Ratio Ur 4.0 ug/mg CR (<30)
== END ==
PROVIDERS: PCP Family Medicine; Referring Provider Family Medicine; Visit Provider Family Medicine
DX: E78.5 Hyperlipidemia, unspecified (principal); I10 Essential (primary) hypertension; R61 Generalized hyperhidrosis; Z82.49 Family history of ischemic heart disease and other diseases of the circulatory system
CPT/HCPCS: 36415; 80053; 82043; 82570; 83036; 84443; 85025